=== PATIENT | female | born 1945 | race Caucasian/White ===

== ENCOUNTER 2018-12-08 19:03 | Inpatient (IN) | payer MEDICARE, OTHER ==
[~2018-12-08] VITALS: Ht 162.6 cm; Wt 54.4 kg
--- NOTE | 2018-12-08 19:08 | NUR ---
"[id number] [facility] JAUN PELAEZ C/O BEING AGGRESSIVE TOWARDS STAFF AND OTHER PATIENTS X 1 WEEK." PT AAOX0, -SOB, NAD NOTED, VSS, PENDING MD ZEPEDA
[2018-12-08] MEDS ORDERED: LORAZEPAM INJ 2 MG/ML VIAL IM/IV ONE (19:30)
[2018-12-08] MEDS ORDERED: LORAZEPAM INJ 2 MG/ML VIAL ONE (19:33)
[2018-12-08 19:44] LABS: BASOPHILS # (AUTO) 0.1 /CMM (0.0-0.2); BASOPHILS % (AUTO) 0.5 % (0.0-2.0); EOSINOPHILS % (AUTO) 1.1 % (0.0-6.0); HEMATOCRIT 36 % (33-45); HEMOGLOBIN 12.3 g/dL (11.5-14.8); LYMPHOCYTES # (AUTO) 2.8 /CMM (0.8-4.8); LYMPHOCYTES % (AUTO) 25.9 % (20.0-44.0); MEAN CORPUSCULAR HGB CONC 34 g/dl (31.0-36.0); MEAN CORPUSCULAR VOLUME 90 fL (82-100); MONOCYTES # (AUTO) 0.9 /CMM (0.1-1.30); MONOCYTES % (AUTO) 8.7 % (2.0-12.0); NEUTROPHILS # (AUTO) 6.8 /CMM (1.8-8.9); NEUTROPHILS % (AUTO) 63.8 % (43.0-81.0); PLATELET COUNT (AUTO) 227 /CMM (150-450); RED BLOOD CELL COUNT(AUTO) 3.96 MIL/uL (4.0-5.2); WHITE BLOOD COUNT (AUTO) 10.6 K/uL (4.3-11.0)
[2018-12-08 19:52] LABS: CARBON DIOXIDE 26 mmol/L (21-32); CHLORIDE 105 mmol/L (98-107); GLUCOSE 86 mg/dL (74-106); POTASSIUM 4.6 mmol/L (3.5-5.1); SODIUM SERUM 141 mmol/L (136-145); UREA NITROGEN, BLOOD 19 mg/dL (7-18)
[2018-12-08 19:58] LABS: ALANINE AMINOTRANSFERASE 24 U/L (12-78); ALBUMIN 3.3 g/dL (3.4-5.0); ALCOHOL, BLOOD < 3 mg/dL (0-0); ALKALINE PHOSPHATASE 58 U/L (46-116); ASPARTATE AMINOTRANSFERASE 23 U/L (15-37); BILIRUBIN,DIRECT 0.1 mg/dL (0.0-0.2); BILIRUBIN,TOTAL 0.4 mg/dL (0.2-1.0); TOTAL PROTEIN, SERUM 6.6 g/dL (6.4-8.2)
[2018-12-08 19:59] LABS: SALICYLATE < 2.8 mg/dL (2.8-20.0)
[2018-12-08 20:00] VITALS: BP 126/83
--- NOTE | 2018-12-08 20:00 | NUR ---
NG[facility] HALEY [phone]
[2018-12-08 20:05] LABS: APPEARANCE,URINE Clear (CLEAR); BILIRUBIN,URINE Negative (NEGATIVE); BLOOD, URINE Negative Ery/uL (NEGATIVE); COLOR,URINE Yellow (YELLOW); KETONES,URINE Trace (NEGATIVE); LEUKOCYTE ESTERASE ,URINE Negative (NEGATIVE); NITRITE, URINE Negative (NEGATIVE); PROTEIN,URINE Negative (NEGATIVE); UGLUCOSE Negative (NEGATIVE)
[2018-12-08 20:13] LABS: BACTERIA,URINE Rare /HPF (None Seen); SQUAMOUS EPITHELIAL CELL,UR Few /HPF (None Seen); WBC,URINE 0-2 /HPF (0-3)
[2018-12-08] MEDS ORDERED: DIVA125C2 PO (21:50)
--- NOTE | 2018-12-08 21:54 | NUR ---
REPORT GIVEN TO TUNG PT WILL BE TRANSPORTED TO [facility]
--- NOTE | 2018-12-08 22:30 | NUR ---
Admitted a 73 y/o female from [facility] and evaluated at [facility] On 5150 hold as GD and DTO. Patient admitting Dx. Psychosis. Medical dx. hypothyroidism, dementia. NKA. Upon face to face evaluation, patient appeared alert and oriented x 1, paranoid, suspicious, aggressive, verbally abusive, uncooperative, anxious, confused, disorganize, disoriented. Speech is rambling and nonsensible. Explanation provided, limit settings done and redirected the patient. Explained the paper works and patient unable to sign the consents. Informed of visiting hours and unit policies. Belongings and contraband checked. Q15 min checks initiated. Care plan started. Vital signs checked and recorded. Patient's rights discussed, guide to prescription meds handbook provided. Patient advised of the hold. Notified Dr. Haynes of the admission. Will monitor patient for mood, safety and behavior. Will endorse to the day shift.
[2018-12-08] MEDS ORDERED: MAG HYDROX/AL HYDROX/SIMETH 30 ML UDC PO PRN (23:00)
[2018-12-08] MEDS ORDERED: BLOOD SUGAR DIAGNOSTIC 1 EACH STRIP IN ONE (23:00)
[2018-12-08] MEDS ORDERED: MAGNESIUM HYDROXIDE 30 ML UDC PO PRN (23:00)
[2018-12-08] MEDS ORDERED: ZOLPIDEM TARTRATE 5 MG TABLET PO PRN (23:00)
[2018-12-08] MEDS ORDERED: ACETAMINOPHEN 325 MG TABLET PO PRN (23:00)
[2018-12-09] MEDS ORDERED: Z GUARD REMEDY 4 OZ OINT TP PRN
--- NOTE | 2018-12-09 | NUR ---
GPS RN NOTE: PATIENT SEEN AND EXAMINED BY DR. FRANCOIS, NO NEW ORDERS GIVEN.
[2018-12-09 00:16] VITALS: BP 155/86
--- NOTE | 2018-12-09 06:29 | NUR ---
GPS RN NOTE: LEFT MESSAGE TO KIMBERLY FRY (RESPONSIBLE CONSTITUTION PARTY)
[2018-12-09 08:00] VITALS: BP 91/52
[2018-12-09] MEDS ORDERED: MULT-24 PO (08:14)
[2018-12-09] MEDS ORDERED: BISA10SU11 RC (08:14)
[2018-12-09] MEDS ORDERED: ACET-868 PO (08:14)
[2018-12-09] MEDS ORDERED: MAGN400O6 PO (08:14)
[2018-12-09] MEDS ORDERED: MEGE40TA PO (08:14)
[2018-12-09] MEDS ORDERED: NA P133E RC (08:14)
[2018-12-09] MEDS ORDERED: ACETAMINOPHEN 325 MG TABLET PO PRN (09:30)
[2018-12-09] MEDS ORDERED: NA PHOS,M-B/NA PHOS,DI-BA 1 EA ENEMA RC PRN (09:30)
[2018-12-09] MEDS ORDERED: MAGNESIUM HYDROXIDE 30 ML UDC PO PRN (09:30)
[2018-12-09] MEDS ORDERED: BISACODYL SUPP (10 MG) 10 MG/SUPP.RECT SUPP.RECT RC PRN (09:30)
[2018-12-09] MEDS: LORAZEPAM 0.5 MG TABLET PO PRN ×2 (09:53→23:23)
--- NOTE | 2018-12-09 09:53 | NUR ---
RN NOTES PATIENT WITH THE RT VERY ANXIOUS, CONFUSED, SPEECH NOT CLEAR, IRRITABLE, YELLING, WALKING IN THE HALLWAY, UNSTEADY GAIT, ADMINISTERED ATIVAN 1 MG PO PRN V/S TAKEN BP-98/52, P76. CONTINUED MONITORING FOR SAFETY.
[2018-12-09] MEDS: AMLODIPINE BESYLATE 5 MG TABLET PO SCH (10:00)
[2018-12-09 16:00] VITALS: BP 109/72
[2018-12-09] MEDS ORDERED: DIVALPROEX SODIUM 125 MG TABLET.DR PO SCH ×2 (17:00→21:00)
[2018-12-09] MEDS: DIVALPROEX SODIUM 125 MG CAP.SPRINK PO SCH ×2 (19:01→21:19)
[2018-12-09 20:01] VITALS: BP 112/70
--- NOTE | 2018-12-09 23:23 | NUR ---
GPS RN NOTES: PT.NOTED ANXIOUS , AGGRESSIVE, DISORGANIZED, YELLING, NOT FALLOWING ANY REDIRECTIONS , HYPERVERBAL ,ATIVAN 1 MG PO PRN GIVEN, WILL CONTINUE TO MONITOR.
--- NOTE | 2018-12-10 07:13 | NUR ---
GPS RN NOTE: PATIENT WOKE UP, CONFUSED, DISORGANIZED, UNCOOPERATIVE, PACING HALLWAY /ROOM, UNSTEADY GAIT, REDIRECTED THE PATIENT, ESCORTED THE PATIENT BACK TO BED, WILL CONTINUE TO MONITOR Q15 MINS FOR SAFETY.
[2018-12-10 08:00] VITALS: BP 104/62
[2018-12-10] MEDS: AMLODIPINE BESYLATE 5 MG TABLET PO SCH (09:00)
[2018-12-10] MEDS: DIVALPROEX SODIUM 125 MG CAP.SPRINK PO SCH ×4 (09:50→21:27)
[2018-12-10] MEDS: MEGESTROL ACETATE 40 MG TABLET PO SCH (09:50)
[2018-12-10] MEDS: MULTIVITAMINS,THERAGRAN 1 UDTAB TABLET PO SCH (09:50)
[2018-12-10] MEDS ORDERED: Z GUARD REMEDY 2 OZ OINT TP PRN (15:00)
[2018-12-10] MEDS ORDERED: Z GUARD REMEDY 2 OZ OINT TP SCH (15:00)
[2018-12-10 16:00] VITALS: BP 116/82
[2018-12-10 19:43] VITALS: BP 134/98
[2018-12-10] MEDS: LORAZEPAM 0.5 MG TABLET PO PRN (21:27)
[2018-12-10] MEDS: QUETIAPINE FUMARATE 25 MG TABLET PO SCH (21:27)
[2018-12-11 08:00] VITALS: BP 107/64
[2018-12-11] MEDS: AMLODIPINE BESYLATE 5 MG TABLET PO SCH (09:00)
[2018-12-11] MEDS: MEGESTROL ACETATE 40 MG TABLET PO SCH (09:00)
[2018-12-11] MEDS: DIVALPROEX SODIUM 125 MG CAP.SPRINK PO SCH ×4 (09:00→21:35)
[2018-12-11] MEDS: MULTIVITAMINS,THERAGRAN 1 UDTAB TABLET PO SCH (09:00)
--- NOTE | 2018-12-11 09:03 | NUR ---
WOUND CARE CONSULT: PT PRESENTS WITH IRREGULARITIES IN SKIN PIGMENTATION AND BLANCHABLE REDNESS TO SACRAL/BUTTOCKS AREA, PRESENT ON ADMISSION. PT IS INCONTINENT. RECOMMENDATIONS MADE FOR SKIN PROTECTION. DISCUSSED WITH NURSING STAFF. WILL SEE PRN. CURRENT TIFFANIE SCORE IS 19.
--- NOTE | 2018-12-11 11:33 | NUR ---
MACARIO called the person listed on the facesheet, Alyssa Monae ([phone]), and left a voicemail stating that she would like to receive some information regarding the pt because her speech is incoherent.
--- NOTE | 2018-12-11 13:59 | NUR ---
MACARIO contacted MATY ([phone]) from [facility] and inquired about whether or not the pt can return to the facility and it was stated that the pt can return once she is stable.
--- NOTE | 2018-12-11 14:00 | NUR ---
Initial Discharge Plan: Pt currently resides at [facility] located at [address] [place] [address]; . Per CJ the admission coordinator at the facility, the pt can return to the facility. MACARIO will work with the pt and the MD regarding appropriate discharge planning. SW will form a safe and proper discharge plan.
[2018-12-11 16:00] VITALS: BP 118/70
--- NOTE | 2018-12-11 16:01 | NUR ---
Alyssa Monae ([phone]), pts friend, called the SW back and the pts treatment plan and initial discharge plan were discussed. SW informed her that the current tentative plan is to discharge the pt back to [facility] and the pts friend provided the SW with the pts history.
[2018-12-11] MEDS: LORAZEPAM 0.5 MG TABLET PO PRN (20:11)
[2018-12-11 21:29] VITALS: BP 112/71
[2018-12-11] MEDS: QUETIAPINE FUMARATE 25 MG TABLET PO SCH (21:35)
[2018-12-12 08:00] VITALS: BP 126/69
[2018-12-12] MEDS: DIVALPROEX SODIUM 125 MG CAP.SPRINK PO SCH ×4 (08:07→21:31)
[2018-12-12] MEDS: MEGESTROL ACETATE 40 MG TABLET PO SCH (08:07)
[2018-12-12] MEDS: AMLODIPINE BESYLATE 5 MG TABLET PO SCH (08:07)
[2018-12-12] MEDS: MULTIVITAMINS,THERAGRAN 1 UDTAB TABLET PO SCH (08:07)
[2018-12-12 09:00] VITALS: BP 126/69
--- NOTE | 2018-12-12 13:25 | NUR ---
GROUP NOTE Goal: Patient will attend group being held today from 11am -11:45AM in the activities room and participate and/or actively listen to peers and be respectful. Intervention: SW invited patient to attend group session with peers regarding their support system. Response: Patient was not able to participate in group session as she suffers from dementia and is currently unable to engage in conversation. Plan: Patient will be invited to attend next social insurance specialist group session held.
[2018-12-12 16:00] VITALS: BP 117/64
[2018-12-12 20:03] VITALS: BP 121/68
[2018-12-12] MEDS: QUETIAPINE FUMARATE 25 MG TABLET PO SCH (21:31)
[2018-12-12] MEDS: LORAZEPAM 0.5 MG TABLET PO PRN (23:49)
[2018-12-13 08:00] VITALS: BP 100/59
[2018-12-13] MEDS: DIVALPROEX SODIUM 125 MG CAP.SPRINK PO SCH ×4 (08:33→21:34)
[2018-12-13] MEDS: AMLODIPINE BESYLATE 5 MG TABLET PO SCH (08:34)
[2018-12-13] MEDS: MEGESTROL ACETATE 40 MG TABLET PO SCH (08:34)
[2018-12-13] MEDS: MULTIVITAMINS,THERAGRAN 1 UDTAB TABLET PO SCH (08:34)
[2018-12-13 16:00] VITALS: BP 127/75
[2018-12-13 20:00] VITALS: BP 129/83
[2018-12-13] MEDS: QUETIAPINE FUMARATE 25 MG TABLET PO SCH (21:34)
[2018-12-13] MEDS: LORAZEPAM 0.5 MG TABLET PO PRN (23:01)
--- NOTE | 2018-12-13 23:15 | NUR ---
GPS RN NOTE: PATIENT AGITATE AND SCREAMING, ATIVAN 1MG ORAL GIVEN PER MD ORDER. WILL CONTINUE TO MONITOR.
[2018-12-14 08:00] VITALS: BP 106/51
[2018-12-14] MEDS: MEGESTROL ACETATE 40 MG TABLET PO SCH (09:00)
[2018-12-14] MEDS: AMLODIPINE BESYLATE 5 MG TABLET PO SCH (09:00)
[2018-12-14] MEDS: MULTIVITAMINS,THERAGRAN 1 UDTAB TABLET PO SCH (09:00)
[2018-12-14] MEDS: DIVALPROEX SODIUM 125 MG CAP.SPRINK PO SCH ×4 (09:00→21:20)
[2018-12-14] MEDS: LORAZEPAM 0.5 MG TABLET PO PRN (15:22)
[2018-12-14 16:00] VITALS: BP 112/71
[2018-12-14 20:00] VITALS: BP 111/65
[2018-12-14] MEDS: QUETIAPINE FUMARATE 25 MG TABLET PO SCH (21:20)
[2018-12-15 08:00] VITALS: BP 135/81
[2018-12-15] MEDS: MEGESTROL ACETATE 40 MG TABLET PO SCH (08:43)
[2018-12-15] MEDS: MULTIVITAMINS,THERAGRAN 1 UDTAB TABLET PO SCH (08:43)
[2018-12-15] MEDS: AMLODIPINE BESYLATE 5 MG TABLET PO SCH (08:44)
[2018-12-15] MEDS: DIVALPROEX SODIUM 125 MG CAP.SPRINK PO SCH ×4 (08:44→21:41)
[2018-12-15 16:00] VITALS: BP 113/85
[2018-12-15 20:00] VITALS: BP 143/56
[2018-12-15] MEDS: LORAZEPAM 0.5 MG TABLET PO PRN (20:09)
[2018-12-15] MEDS: QUETIAPINE FUMARATE 25 MG TABLET PO SCH (21:42)
[2018-12-15 23:00] VITALS: BP 123/68
[2018-12-16 08:00] VITALS: BP 100/58
[2018-12-16] MEDS: DIVALPROEX SODIUM 125 MG CAP.SPRINK PO SCH ×4 (08:48→21:06)
[2018-12-16] MEDS: MULTIVITAMINS,THERAGRAN 1 UDTAB TABLET PO SCH (08:48)
[2018-12-16] MEDS: MEGESTROL ACETATE 40 MG TABLET PO SCH (08:49)
[2018-12-16] MEDS: AMLODIPINE BESYLATE 5 MG TABLET PO SCH (08:50)
[2018-12-16] MEDS: QUETIAPINE FUMARATE 25 MG TABLET PO SCH ×2 (11:55→21:06)
[2018-12-16] MEDS: LORAZEPAM 0.5 MG TABLET PO PRN (14:17)
--- NOTE | 2018-12-16 14:30 | NUR ---
RN MS NOTES PT AWAKE, SITTING IN HER CHAIR AT THE ACTIVITY ROOM, WITH EPISODES OF YELLING AND AGITATION, 1:1 INTERACTION PROVIDED, NEEDS ATTENDED AND MADE COMFORTABLE, STILL WITH AGITATION, ATIVAN GIVEN ORDERED, PT CALM AT THIS TIME, WILL CONTINUE TO MONITOR.
--- NOTE | 2018-12-16 18:05 | NUR ---
RN GPS NOTES PT AWAKE, SITTING IN RECLINER CHAIR, ALERT TO SELF, WITH CONFUSION, WITH EPISODES OF AGITATION, PM MEDS GIVEN, COMPLIANT WITH MEDS, PM CARE PROVIDED, SAFETY PRECAUTIONS OBSERVED.
[2018-12-16 20:00] VITALS: BP 119/67
--- NOTE | 2018-12-17 07:18 | NUR ---
GPS RN NOTES : PT. IN DURING SHIFT, PT. BEHAVIOR VERY UNCOOPERATIVE , SCREAMING YELLING, AGGRESSIVE, NOT FALLOWING ANY REDIRECTIONS ,NOT STAYING IN BED, TRYING TO GET OUT THE BED , BANGING UPPER LOWER EXTREMITIES WITH SIDE RAILS , WILL CONTINUITY WITH CARE.
[2018-12-17 08:00] VITALS: BP 100/53
--- NOTE | 2018-12-17 08:00 | NUR ---
RN NOTE: PATIENT RECEIVED ALERT, AWAKE, SCREAMING, BANGING ON SIDE RAILS, CONTINUOUSLY SCRATCHING SACROCOCCYX AREA. TRYING TO GET FROM BED. REORIENTATION GIVEN. SAFETY EDUCATION GIVEN. ENCOURAGE TO VERBALIZE FEELINGS. SKIN ASSESSMENT DONE. PER ANALYST GEOCHEMICAL PROSPECTING BILATERAL BUTTOCK REDNESS IS PARTIAL THICKNESS LOSS NOW DURING WEEKLY ASSESSMENT. WOUND CONSULT TODAY. SAFETY MEASURES OBSERVED. DENIES SI/HI/AVH. CONTINUE WITH PLAN OF CARE.
[2018-12-17] MEDS: MULTIVITAMINS,THERAGRAN 1 UDTAB TABLET PO SCH (08:33)
[2018-12-17] MEDS: DIVALPROEX SODIUM 125 MG CAP.SPRINK PO SCH ×4 (08:33→20:43)
[2018-12-17] MEDS: MEGESTROL ACETATE 40 MG TABLET PO SCH (08:34)
[2018-12-17] MEDS: QUETIAPINE FUMARATE 25 MG TABLET PO SCH ×2 (08:35→21:20)
[2018-12-17] MEDS: AMLODIPINE BESYLATE 5 MG TABLET PO SCH (08:35)
--- NOTE | 2018-12-17 13:00 | NUR ---
RN NOTE: MAINTAIN PERINEAL HYGIENE. PT REMAINS CLEAN & DRY. AMBULATORY/STEADY GAIT.
[2018-12-17] MEDS: LORAZEPAM 0.5 MG TABLET PO PRN ×2 (13:23→21:49)
--- NOTE | 2018-12-17 15:00 | NUR ---
GROUP NOTE: SW prompted pt to participate in group session on this present day discussing "current issues you are having while being on a hold." Pt is unable to participate in group due to her Dementia; pt unable to engage in a meaningful conversation and is not appropriate for group or able to follow directions in a group setting. Pt was observed defecating on herself while in the activity room and grabbing her feces with her hand.
[2018-12-17 16:00] VITALS: BP 101/62
--- NOTE | 2018-12-17 18:52 | NUR ---
RN NOTE: REMAINS ALERT AWAKE ORIENTED X 1. NO FALL/INJURY NOTED. DENIES SI/HI/AVH. AMBULATORY. INDEPENDENT WITH BED-MOBILITY. CONTINUE WITH PLAN OF CARE.
[2018-12-18] MEDS: DIVALPROEX SODIUM 125 MG CAP.SPRINK PO SCH ×4 (08:23→21:42)
[2018-12-18] MEDS: QUETIAPINE FUMARATE 25 MG TABLET PO SCH ×3 (08:23→21:42)
[2018-12-18] MEDS: MEGESTROL ACETATE 40 MG TABLET PO SCH (08:23)
[2018-12-18] MEDS: MULTIVITAMINS,THERAGRAN 1 UDTAB TABLET PO SCH (08:23)
[2018-12-18] MEDS: AMLODIPINE BESYLATE 5 MG TABLET PO SCH (08:24)
[2018-12-18 09:08] VITALS: BP 95/52
[2018-12-18 16:00] VITALS: BP 119/60
--- NOTE | 2018-12-18 16:12 | NUR ---
Group Note: SW prompted pt to participate in group session for the topic of discharge planning. Pt is unable to participate in group therapy due to cognitive impairment and inappropriate and disruptive behavior.
[2018-12-19] MEDS: LORAZEPAM 0.5 MG TABLET PO PRN (00:11)
[2018-12-19 08:00] VITALS: BP 110/64
[2018-12-19] MEDS: DIVALPROEX SODIUM 125 MG CAP.SPRINK PO SCH ×4 (09:08→21:00)
[2018-12-19] MEDS: AMLODIPINE BESYLATE 5 MG TABLET PO SCH (09:08)
[2018-12-19] MEDS: QUETIAPINE FUMARATE 25 MG TABLET PO SCH ×3 (09:08→22:00)
[2018-12-19] MEDS: MULTIVITAMINS,THERAGRAN 1 UDTAB TABLET PO SCH (09:08)
[2018-12-19] MEDS: MEGESTROL ACETATE 40 MG TABLET PO SCH (09:11)
--- NOTE | 2018-12-19 13:14 | NUR ---
GPS/RN PT REFUSED PO MEDS FOR 1300. DR BONNER ASSESSED THE PT AND ORDERED ZYPREXA 5MG IM FOR AGITATION AND AGGRESSIVENESS TOWARD NURSING STUFF.
[2018-12-19] MEDS ORDERED: OLANZAPINE 10 MG VIAL IM ONE (13:30)
[2018-12-19 15:59] VITALS: BP 100/53
--- NOTE | 2018-12-19 16:14 | NUR ---
GROUP NOTE: SW prompted pt to participate in group session on this present day discussing "medication compliance." Pt is cognitively impaired and displays inappropriate behavior; pt yelling walking down the hallway and removing her diaper.
[2018-12-19 20:15] VITALS: BP 96/54
--- NOTE | 2018-12-19 22:35 | NUR ---
GPS RN NOTE: PATIENT PM MEDICATION NOT RECEIVED, PATIENT IS ASLEEP D/T IM ZYPREXA SHOT GIVEN DURING THE DAY. V/S BP=96/54 P90 R18 T98.1. NO SOB, NO ACUTE DISTRESS, BREATHING EVEN AND UNLABORED. WILL CONTINUE TO MONITOR Q15 MINS FOR SAFETY
[2018-12-20 08:00] VITALS: BP 117/55
[2018-12-20] MEDS: MEGESTROL ACETATE 40 MG TABLET PO SCH (08:05)
[2018-12-20] MEDS: MULTIVITAMINS,THERAGRAN 1 UDTAB TABLET PO SCH (08:05)
[2018-12-20] MEDS: DIVALPROEX SODIUM 125 MG CAP.SPRINK PO SCH ×4 (08:05→21:30)
[2018-12-20] MEDS: QUETIAPINE FUMARATE 25 MG TABLET PO SCH ×4 (08:05→21:31)
[2018-12-20] MEDS: AMLODIPINE BESYLATE 5 MG TABLET PO SCH (08:06)
--- NOTE | 2018-12-20 10:35 | NUR ---
RN NOTE PT AGITATED. PT GIVEN PRN ATIVAN 1MG. WILL CONTINUE TO MONITOR.
[2018-12-20] MEDS: LORAZEPAM 0.5 MG TABLET PO PRN ×2 (10:44→18:11)
--- NOTE | 2018-12-20 15:37 | NUR ---
Group Note: Pt was encouraged to participate in group therapy but she stated that she was too depressed and anxious to participate. MACARIO provided the pt with an individual intervention and asked her where the anxiety comes from and she stated that it comes from her not knowing where she is going to go. MACARIO stated that she is working on SNF or Assisted Living placement and understands that she needs a place with a bath. Addendum: 12/20/18 at 1543 by PARISH SORTO WRONG PT: Group Note: MACARIO prompted pt to participate in group session on this present day but the pt is cognitively impaired and displays inappropriate behavior; pt yelling walking down the hallway. Pt was not appropriate for individual intervention.
[2018-12-20 16:00] VITALS: BP 100/52
--- NOTE | 2018-12-20 18:31 | NUR ---
RN NOTE PT AGITATED. PT GIVEN PRN ATIVAN 1MG. WILL CONTINUE TO MONITOR.
--- NOTE | 2018-12-20 19:22 | NUR ---
Ambulating back and forth, in and out of her room without direction, not following instructions due to confusion, loud, yelling, a/o x1. Medicated with ativan an hour ago by her day nurse.
[2018-12-20 20:00] VITALS: BP 114/67
[2018-12-21 08:00] VITALS: BP 138/69
[2018-12-21] MEDS: MEGESTROL ACETATE 40 MG TABLET PO SCH (08:21)
[2018-12-21] MEDS: DIVALPROEX SODIUM 125 MG CAP.SPRINK PO SCH ×4 (08:21→21:04)
[2018-12-21] MEDS: QUETIAPINE FUMARATE 25 MG TABLET PO SCH ×4 (08:21→21:04)
[2018-12-21] MEDS: MULTIVITAMINS,THERAGRAN 1 UDTAB TABLET PO SCH (08:21)
[2018-12-21] MEDS: AMLODIPINE BESYLATE 5 MG TABLET PO SCH (08:22)
[2018-12-21] MEDS: LORAZEPAM 0.5 MG TABLET PO PRN ×2 (12:43→23:19)
--- NOTE | 2018-12-21 12:50 | NUR ---
RN NOTE PATIENT NOTED TO BE AGITATED. YELLING ANG WANDERING INTO OTHER PATIENTS ROOMS. PT GIVEN PRN ATIVAN 1MG. WILL CONTINUE TO MONITOR.
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
[2018-12-21 16:00] VITALS: BP 119/71
[2018-12-21 20:00] VITALS: BP 108/66
--- NOTE | 2018-12-22 07:30 | NUR ---
GPS RN NOTE PT REFUSING AM LAB DRAW AT THIS TIME, STATES "SLEEP", BAKERY WORKER WILL RETURN LATER TO ATTEMPT LAB DRAW
[2018-12-22 08:00] VITALS: BP 129/76
[2018-12-22] MEDS: DIVALPROEX SODIUM 125 MG CAP.SPRINK PO SCH ×4 (09:00→20:10)
[2018-12-22] MEDS: MULTIVITAMINS,THERAGRAN 1 UDTAB TABLET PO SCH (09:00)
[2018-12-22] MEDS: QUETIAPINE FUMARATE 25 MG TABLET PO SCH ×4 (09:00→22:10)
[2018-12-22] MEDS: MEGESTROL ACETATE 40 MG TABLET PO SCH (09:00)
[2018-12-22] MEDS: AMLODIPINE BESYLATE 5 MG TABLET PO SCH (09:00)
--- NOTE | 2018-12-22 09:00 | NUR ---
GPS RN NOTE PT CONTINUES TO REFUSE AM PO MEDICATIONS
--- NOTE | 2018-12-22 10:04 | NUR ---
GPS RN NOTE PT REFUSING VALPORIC ACID LAB DRAW AGAIN, EDUCATION PROVIDED, PT STRONGLY REFUSED AND BECAME AGITATED
--- NOTE | 2018-12-22 10:35 | NUR ---
GPS RN NOTE PT CONTINUES TO REFUSE PO AM MEDICATIONS
--- NOTE | 2018-12-22 12:08 | NUR ---
GPS RN NOTE ADDITIONAL SEROQUEL 25MG PULLED BECAUSE FIRST ONE DROPPED. ONLY SEROQUEL 25MG X1 ADMINISTERED TO THE PATIENT
[2018-12-22 16:00] VITALS: BP 127/86
[2018-12-22] MEDS: LORAZEPAM 0.5 MG TABLET PO PRN (20:00)
[2018-12-23 08:00] VITALS: BP 135/71
[2018-12-23] MEDS: QUETIAPINE FUMARATE 25 MG TABLET PO SCH ×4 (08:38→21:43)
[2018-12-23] MEDS: MULTIVITAMINS,THERAGRAN 1 UDTAB TABLET PO SCH (08:38)
[2018-12-23] MEDS: AMLODIPINE BESYLATE 5 MG TABLET PO SCH (08:38)
[2018-12-23] MEDS: MEGESTROL ACETATE 40 MG TABLET PO SCH (08:38)
[2018-12-23] MEDS: DIVALPROEX SODIUM 125 MG CAP.SPRINK PO SCH ×4 (08:39→21:43)
[2018-12-23] MEDS: LORAZEPAM 0.5 MG TABLET PO PRN ×2 (10:19→23:45)
[2018-12-23 16:00] VITALS: BP 137/79
[2018-12-23 20:01] VITALS: BP 91/49
[2018-12-23 21:00] VITALS: BP 112/67
[2018-12-24 08:00] VITALS: BP 136/69
[2018-12-24] MEDS: MULTIVITAMINS,THERAGRAN 1 UDTAB TABLET PO SCH (09:52)
[2018-12-24] MEDS: DIVALPROEX SODIUM 125 MG CAP.SPRINK PO SCH ×4 (09:52→21:38)
[2018-12-24] MEDS: MEGESTROL ACETATE 40 MG TABLET PO SCH (09:53)
[2018-12-24] MEDS: QUETIAPINE FUMARATE 25 MG TABLET PO SCH ×4 (09:53→21:38)
[2018-12-24] MEDS: AMLODIPINE BESYLATE 5 MG TABLET PO SCH (09:53)
--- NOTE | 2018-12-24 11:05 | NUR ---
MACARIO contacted MATY ([phone]) from [facility] and informed him that the pt is going to be discharged back to the facility the following day.
--- NOTE | 2018-12-24 15:50 | NUR ---
Group Note: SW encouraged the pt to participate in group therapy regarding discharge planning but the pt is not appropriate for group. Pt is cognitively impaired and unable to participate in a group setting. Pt has been yelling and has displayed aggressive behavior. Pt is also somewhat difficult to redirect and is intrusive.
[2018-12-24 16:00] VITALS: BP 100/66
[2018-12-24] MEDS: LORAZEPAM 0.5 MG TABLET PO PRN (17:04)
--- NOTE | 2018-12-24 17:08 | NUR ---
GPS/RN-NOTES NOTED PATIENT WANDERING TO OTHER ROOMS,SCREAMING AND YELLING AT THE STAFF.UNABLE TO REDIRECT. ATIVAN 1MG P.O GIVEN PRN ORDER. WILL CONT. MONITORING FOR SAFETY AND BEHAVIOR.
--- NOTE | 2018-12-24 19:30 | NUR ---
GPS RN NOTE, RECEIVED PATIENT AWAKE AND IN BED, NO S/S OR COMPLAINTS OF PAIN AT THIS TIME. PATIENT IS DISPLAYING NO S/S OF APPARENT DISTRESS AT THIS TIME. PATIENT BREATHING IS UNLABORED WITH EQUAL RISE AND FALL OF THE CHEST. PATIENT IS ALERT AND ORIENTED X 1 ON ROOM AIR WITH A SPO2 96 %. PATIENT IS COMPLIANT WITH MEDICATION, DISORGANIZED, CONFUSED, WANDERING, MUMBLES, AND NEEDS CONSTANT REORIENTATION. PATIENT DENIES SUICIDE IDEATIONS AND HOMICIDAL IDEATIONS AT THIS TIME. PATIENT ASSISTED WITH TURNING AND REPOSITIONING Q2 HR AND PRN FOR COMFORT AND CIRCULATION. PATIENT HAS NO NEEDS AT THIS TIME. PATIENT EDUCATED ON THE USE OF THE CALL REYES. PATIENT BED SIDE RAILS UP X 2 FOR SAFETY, BED IS LOCKED AND LOW. WILL CONTINUE TO MONITOR Q15 MIN WITH THE HELP OF STAFF TO MAINTAIN SAFETY.
[2018-12-24 19:39] VITALS: BP 111/59
[2018-12-25] MEDS: LORAZEPAM 0.5 MG TABLET PO PRN ×2 (02:47→12:33)
--- NOTE | 2018-12-25 02:47 | NUR ---
GPS RN NOTE, PATIENT HAS A COMPLAINT OF FEELING ANXIOUS AND IS REQUESTING ATIVAN. VITAL SIGNS ARE STABLE. GAVE ATIVAN 1 MG PO Q8 HR PRN ORDERED. WILL REASSESS FOR ANXIETY AND I WILL CONTINUE TO MONITOR THIS PATIENT.
[2018-12-25 08:00] VITALS: BP 148/67
[2018-12-25] MEDS: QUETIAPINE FUMARATE 25 MG TABLET PO SCH ×2 (09:18→12:35)
[2018-12-25 09:19] VITALS: BP 148/67
[2018-12-25] MEDS: AMLODIPINE BESYLATE 5 MG TABLET PO SCH (09:19)
[2018-12-25] MEDS: MULTIVITAMINS,THERAGRAN 1 UDTAB TABLET PO SCH (09:19)
[2018-12-25] MEDS: MEGESTROL ACETATE 40 MG TABLET PO SCH (09:19)
[2018-12-25] MEDS: DIVALPROEX SODIUM 125 MG CAP.SPRINK PO SCH ×2 (09:20→12:34)
--- NOTE | 2018-12-25 13:07 | NUR ---
ADMINISTRATIVE OPERATIONS COORDINATOR NOTE: PATIENT IS A 73 YEAR OLD FEMALE DISCHARGED TO [facility] LOCATED AT [address] [place] [id number] . PATIENT IS IN STABLE CONDITION. VSS. NO ACUTE DISTRESS NOTED. COMPLIANT WITH MEDICATION MANAGEMENT. PSYCHIATRIC TREATMENT PLANS MET. MEDICAL TREATMENT PLANS DEFERRED FOR CONTINUAL MONITORING. DENIES SI/HI VAH AT THE TIME OF DISCHARGE. REFUSED SKIN CHECK. EDUCATED PATIENT ABOUT AFTERCARE WITH COPY PROVIDED BUT PATIENT IS CONFUSED. RETURNED PERSONAL BELONGINGS TO PATIENT. MEDICATIONS RECONCILED WITH DR BONNER AND DR [facility] ALONG WITH PSYCHIATRIC DISCHARGE ORDERS. DISCHARGE PAPERWORK SIGNED. FOR FOLLOW UP WITH PSYCHIATRIST DR BONNER [id number] [facility] [address] [facility] [place] [id number] [address]OCI[address] SOFTWARE [address] CORONA [id number] [facility] [id number] WITHIN 1 WEEK. PATIENT LEFT THE [facility] AT 1245 VIA AMBULANCE.
--- NOTE | 2018-12-25 14:06 | NUR ---
MACARIO called Alyssa Dov ([phone]), pts friend, and informed her of the pts discharge back to [facility].
--- NOTE | 2018-12-25 14:09 | NUR ---
Discharge Note: [facility]) located at [address] [place] [id number]; ([phone]). Pt was transported via [facility] at 12:30 PM. Alyssa Monae ([phone]), pts friend, was made aware of the discharge. Upon discharge, the pt appeared to be in a euthymic mood and presented with a calm affect. Pt denied both suicidal and homicidal ideation as well as auditory and visual hallucinations. Pt will continue to be under the care of her psychiatrist, Dr. Haynes, located at [address] [facility] [address]; and her door person, Dr. Serrano, located at [address] [place] [address]; .
== END 2018-12-25 12:10 | DRG 885 ==
LOC: ER 19:16 → GPS 22:13
PROVIDERS: ADMIT Psychiatry & Neurology Psychiatry; ATTEND Internal Medicine
DX: F39 Unspecified mood [affective] disorder (principal); E44.1 Mild protein-calorie malnutrition; F03.91 Unspecified dementia, unspecified severity, with behavioral disturbance; E03.9 Hypothyroidism, unspecified; Z79.899 Other long term (current) drug therapy; F31.9 Bipolar disorder, unspecified; F41.9 Anxiety disorder, unspecified; Z73.6 Limitation of activities due to disability; F29 Unspecified psychosis not due to a substance or known physiological condition
CPT/HCPCS: 36415; 80048-TC; 80076-TC; 80164-TC; 80305; 81000-TC; 84484-TC; 85025-TC; 87081-TC; 97116-TC; 97530-TC; G0480; J2060; J3490